=== PATIENT | male | born 1980 | race African-American/Black ===

== ENCOUNTER 2019-09-15 07:58 | Inpatient (IN) | payer OTHER ==
[~2019-09-15] VITALS: Ht 175.3 cm; Wt 113.6 kg
[2019-09-15] MEDS ORDERED: PRINIVIL40 MG PO (08:19)
[2019-09-15] MEDS ORDERED: ACTOS 45MG45 MG/TAB PO (08:21)
[2019-09-15 08:51] LABS: MEAN CELL VOLUME 93 fl (80.0-100.0); MEAN CORPUSCULAR HGB CONC 30 g/dl (33.0-37.0); MEAN PLATELET VOLUME 9.7 fl (7.4-10.4); PLATELET COUNT 598 K/mm3 (130-400); RED BLOOD COUNT 3.09 M/mm3 (4.20-5.60); REDCELL DISTRIBUTION WIDTH-CV 15.8 % (11.5-14.5)
[2019-09-15 09:16] LABS: BILIRUBIN,TOTAL 0.6 mg/dL (0.0-1.0); CALCIUM 8.5 mg/dL (8.4-10.2); CREATININE, serum 0.6 (0.66-1.25); HEMATOCRIT 28.8 % (42.0-52.0); HEMOGLOBIN 8.7 g/dl (13.5-18.0); MEAN CORPUSCULAR HEMOGLOBIN 28 pg (27.0-31.0); POTASSIUM 4.3 mmol/L (3.4-5.0); TOTAL PROTEIN 7.3 gm/dL (6.4-8.2)
[2019-09-15 10:19] LABS: BAND 9 % (0-10); LYMPHOCYTE 12 % (20.0-51.0); METAMYELOCYTE 3 % (0-0); NEUTROPHILS 75 % (42.0-75.2); NUCLEATED RED BLOOD CELL 2 (0-6); PLATELET ESTIMATE DECREASED (NORMAL)
--- NOTE | 2019-09-15 13:40 | NUR ---
arrived on unit per stretcher from ED, with assistance of 5 people moved him with slide board from stretcher to bed, he hs awake and crying out and says he is scared and it hurts and he wants to help move, once into bed he was able to assist with rolling to left side for assessment of cocyx which is intact without redness or open areas, then was also able to help roll to right side to assess dressing to left lower quadrant that is dressed with telfa and is saturated with bloody drainage, has bloody drainage on chux and when was tolled was able to assess left hip incision that appears to have approx open area approx 3cm and remainder of incision with sutures this area has some oozing, has mepiplex dressing to left medial knee, has approx 4cm open wound to left lateral knee that edges are not approximated and open approx 1cm, no drainage noted at this time, left lower extremity with 4+ edema, has 20cm incision with alfredo down front of left lower leg that is CD&I, incision to left shoulder with alfredo CD&I, and lower abdominal pfannestiel incision with sutures that is CD&I, explained to him we would explain everything before doing anything for him and he verbalizes understanding
--- NOTE | 2019-09-15 14:10 | NUR ---
admission assessment completed, he is sleeping when entered room, does awakend after calling his name but continues to doze back off while talking to him, is oriented to date and president and does know he is in [place], goes back to sleep quickly resp quiet and easy
--- NOTE | 2019-09-15 14:42 | NUR ---
BEATRICE Felix notified of vital signs, verbalizes understanding
--- NOTE | 2019-09-15 15:00 | NUR ---
Dr Sandoval in to see patient, dressing removed to left lower quadr and has sutures and is oozing, mepiplex also removed to left knee and it has 2 open areas that has had serosanguinous drainage,
--- NOTE | 2019-09-15 15:22 | NUR ---
spoke with nurse who answered call for Dr Wiley and informed her of consult, BEATRICE Schmitt with orthpaedics also notified of consult
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
--- NOTE | 2019-09-15 15:30 | NUR ---
assisted him with leaning to right side and 4x4 dressings placed with left lower quadrant incision and left hip with foam tape, tolerates well but wants to continue to wait but explained to him why it needs to be done
--- NOTE | 2019-09-15 15:54 | NUR ---
Keshia, PA in to see patient, was unable to get him to wake up and talk with her, called his name loudly and moved him and he did not respond, then moved his leg again and he woke and when spoke to him loudly he thinks I'm being foreceful, tried to explain to him I was unable to arouse him is why I was speaking loudly, he continues to say I am too forceful with how I was talking, Keshia, will visit with him
--- NOTE | 2019-09-15 16:08 | NUR ---
Dr Wiley in to see patient
[2019-09-15 16:16] LABS: INR 1.3 (0.8-3.0); PROTHROMBIN TIME 14.1 SECONDS (9.7-12.8)
--- NOTE | 2019-09-15 16:20 | NUR ---
IV fluids started, he is awake andprovided his name and date or , is quiet and no moaning or grimacing at this itme
--- NOTE | 2019-09-15 16:45 | NUR ---
Vancomycin Initial Dosing Pharmacy Note Ordering provider: Xavi Sandoval MD Indication/duration: Osteomyelitis Empiric Relevant comorbidities: DM LABS: SCr = 0.6, capped at 1 Recommendation: Trough ordered. Will follow levels. Loading dose: 2 grams Maintenance dose: 1.5 grams every 8 hours Trough goal: 15-20 ug/mL
--- NOTE | 2019-09-15 17:00 | NUR ---
awake and assisted him with raising the head of his bed to eat supper, is pleasant and cooperative at this time, is able to feed himself independently, requesting a popsicle when he is finished eating
[2019-09-15 17:30] VITALS: BP 118/70; PULSE 100; TEMP 98
[2019-09-15 18:00] VITALS: BP 115/64; PULSE 115; TEMP 99.7
[2019-09-15 18:32] LABS: PARTIAL THROMBOPLASTIN TIME 41.1 SECONDS (26.0-37.0)
--- NOTE | 2019-09-15 18:36 | NUR ---
attempted to start IV and was unsuccessful, nursing supervisor char house also unsuccessful and have notified another nurse to attempt
[2019-09-15 19:15] VITALS: BP 115/64; PULSE 115; TEMP 99.7
--- NOTE | 2019-09-15 19:16 | NUR ---
bedside shift report given to DAVID Diaz
--- NOTE | 2019-09-15 19:32 | NUR ---
Spoke with Mai from pharmacy. Lara to Y-site heparin into LR.
--- NOTE | 2019-09-15 19:44 | NUR ---
Heparin gtt started at this time. Verified by Sonia HERNANDEZ.
--- NOTE | 2019-09-15 19:54 | NUR ---
Reports 8/10 generalized pain. Provided with PRN morphine.
[2019-09-15 19:55] VITALS: BP 103/70; PULSE 105; TEMP 100
--- NOTE | 2019-09-15 21:45 | NUR ---
Patient turned to replace bed pad and clean dressings to left hip. Distal left hip dressing noted to be dehised about 1in. Clean dressings applied. Left leg edema present. Patient reporting tightness (states not new) in left leg. Patient tachy and febrile with increased pain after moving. Spoke with hospitalist. Orders added.
--- NOTE | 2019-09-15 21:45 | NUR ---
Assessment complete. Patient rolled to change left hip dressing with the assistance of 4 staff members. Lungs clear. Heart sounds normal-tachy. Bowels active. Pulses present. Left lower extremity +3 edema present. Please see skin assessment in shift assessment. Patient has multiple incisions and wounds present with drainage. x1 wound to left hip that has dehisced approx 1in. IV right forearm infusing without complications at this time. Patient has increased pain after assessment. Will contact hospitalist for orders. Call light in reach.
[2019-09-15 23:58] VITALS: BP 134/78; PULSE 99; TEMP 98.6
--- NOTE | 2019-09-16 00:14 | NUR ---
Resting in bed, drowsy. Denies needs. Call light in reach.
--- NOTE | 2019-09-16 00:35 | NUR ---
Patient scheduled for vancomycin 1.5GM. Heparin gtt infusing. Lexicomp states Uncertain y-site compatibility. Contacted e-pharmacy at this time, spoke with Mary Lou. After researching, pharmacist states one article states meds incompatible. RN notified, will pause heaprin gtt and recheck HepXa in 6 hours per [facility].
--- NOTE | 2019-09-16 00:48 | NUR ---
Patient having increased pain. Morphine ordered Q4H. Spoke with hospitalist. Change morphine to Q2H and added norco. Prefer to use norco. Asked hospitalist if okay to give both for short acting and long acting pain control. Will provide to patient.
[2019-09-16 04:00] VITALS: BP 126/86; PULSE 96; TEMP 97.6
--- NOTE | 2019-09-16 05:15 | NUR ---
Patient alert orientated. Reports increased pain in left leg. Assisted with x4 staff members to help patient roll off of left hip and onto right side. Dressing left ABD saturated and change at this time. Patient very tearful. Reports wanting to be able to move and hold daughter again but "stuck in this bed." Dr. Serrano updated on patient situation throughout night. Patient had pain in left lower extremity with minimal movement without assistance. Increased swelling with drainage in left hip/leg. Dr. Serrano in to see patient.
--- NOTE | 2019-09-16 06:33 | NUR ---
Rating 9/10 pain in left lower leg. Provided with PRN morphine
--- NOTE | 2019-09-16 06:44 | NUR ---
Patient had difficult night. Required PRN morphine for pain. Unable to move left leg without assistance from staff. Patient able to move toes. Drainage to left hip and ABD consistant throughout night. PICC orders placed by hospitalist. Recently received dose of morphine this AM. Call light in reach.
--- NOTE | 2019-09-16 07:04 | NUR ---
Report given to DAVID Lamb
[2019-09-16 07:13] VITALS: BP 114/75; PULSE 103; TEMP 99.7
[2019-09-16 07:35] LABS: MEAN CELL VOLUME 94 fl (80.0-100.0); MEAN CORPUSCULAR HGB CONC 30 g/dl (33.0-37.0); MEAN PLATELET VOLUME 9.7 fl (7.4-10.4); PLATELET COUNT 683 K/mm3 (130-400); REDCELL DISTRIBUTION WIDTH-CV 15.9 % (11.5-14.5)
[2019-09-16 07:56] LABS: ALBUMIN 2.8 gm/dL (3.5-5.0); BILIRUBIN,TOTAL 0.4 mg/dL (0.0-1.0); CALCIUM 8.5 mg/dL (8.4-10.2); CREATININE, serum 0.57 (0.66-1.25); POTASSIUM 3.6 mmol/L (3.4-5.0); TOTAL PROTEIN 6.6 gm/dL (6.4-8.2)
[2019-09-16 08:05] LABS: HEMATOCRIT 27.2 % (42.0-52.0); HEMOGLOBIN 8.2 g/dl (13.5-18.0); MEAN CORPUSCULAR HEMOGLOBIN 28 pg (27.0-31.0)
[2019-09-16 08:58] LABS: BAND 7 % (0-10); EOSINOPHIL 3 % (0-4); LYMPHOCYTE 31 % (20.0-51.0); NEUTROPHILS 58 % (42.0-75.2); PLATELET ESTIMATE INCREASED (NORMAL)
--- NOTE | 2019-09-16 09:35 | NUR ---
Patient refused peripheral draw for Hep XA. Hep Xa drawn from PICC.
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
--- NOTE | 2019-09-16 10:55 | NUR ---
Dr Lopes here to see patient.
--- NOTE | 2019-09-16 11:51 | NUR ---
Dr Wiley here to see patient.
--- NOTE | 2019-09-16 11:56 | NUR ---
Patient refuses dressing change to left hip, large amount of drainage on pad.
[2019-09-16 13:00] VITALS: BP 123/76; PULSE 98; TEMP 98.6
--- NOTE | 2019-09-16 13:00 | NUR ---
BASIA attended clinical rounds. The clinical team is recommending that the patient be transferred to a higher level of care. BASIA contacted Be[facility], [facility] with [facility], to inquire if they could accomodate the patient. BASIA faxed clinicals to Becca. Becca reports that they would not be able to provide the level of care the patient needs. BASIA notified the hospitalist. BASIA to continue to follow.
--- NOTE | 2019-09-16 13:28 | NUR ---
Dr Lopes here to see patient.
[2019-09-16 19:37] VITALS: BP 118/72; PULSE 106; TEMP 99.3
--- NOTE | 2019-09-16 19:53 | NUR ---
Patient has yelled out consistently throughout the day with c/o pain, frequent repositioning; yet refuses to allow staff to reposition him. Patient has refused linen and dressing changes, although linens have been saturated with drainage. Attempted to change bedding under patient with staff x4, pain medications and use of draw sheet, after attempting times x1 hour with several "breaks" for patient, effort was abandoned to try again later. Attempted approx one hour later with assist x6 to change linens, with patient loudly and verbally refusing. Several attempts to redirect patient and to perform cares throughout the day met with resistance. Patient also adamant that he be transferred to a hospital in [place], does not have a specific hospital in mind, just in [place]. Patient informed of rules and regulations for tranfer, and remains adamant to be transferred to a facility in [place]. Dr Lopes aware of this and has consulted [facility] for transfer. Possible transfer to [facility] in a.m.
[2019-09-17 00:30] VITALS: BP 140/78; PULSE 100; TEMP 97.1
--- NOTE | 2019-09-17 01:13 | NUR ---
PATIENT HAS REFUSED TO BE REPOSITIONED EVERY TIME IN THE ROOM
--- NOTE | 2019-09-17 03:13 | NUR ---
PRN PAIN MEDICATIONS WERE GIVEN TO PATIENT. STAFF MEMBERS X5 WERE IN ROOM TO HELP GET SHEETS AND DISPOLSABLE PADS UNDERNEATH OF THE PATIENT CHANGED. DRESSINGS WERE CHANGED. THE SHEETS, PADS, AND DRESSINGS WERE CHANGED BECAUSE THEY WERE SATURATED WITH BLOOD. PATIENT WAS MOANING AND GROINING IN PAIN. PATIENT ASKED TO LET HIM BE IN CHARGE. ONE NURSE HAD THE PATIENT LEG AND LIFTING IT OFF OF THE BED AND THE PATIENT WAS ABLE TO LIFT HIMSELF OFF OF THE BED AND STAFF MEMEBERS WERE ABLE TO SLIDE THE NEW SHEETS AND PADS UNDER HIM. ANOTHER DOSE OF PAIN MEDICATION WAS GIVEN. THE WOUNDS WERE ALL SATURATED IN BLOOD AND DRAINAGE. EXTRA PRN PAIN MEDICATION WAS GIVEN TO THE PATIENT. PATIENT IS RESTING NOW. WILL CONTINUE TO MONITOR
[2019-09-17 03:34] VITALS: BP 114/72; PULSE 99; TEMP 97.9
--- NOTE | 2019-09-17 05:03 | NUR ---
PATIENT CALLED OUT FOR PAIN MEDICATION. NOT IN THE ROOM YET THE PATIENT IS QUIET AND NOT BREATHING HEAVY OR MAKING ANY NOISES. UPON ENTERING THE ROOM THE PATIENT STARTS BREATHING HEAVY AND ACTING LIKE HE IS IN SEVERE PAIN. PRN PAIN MEDICATION WAS GIVEN TO THE PATIENT. PATIENT HAD TAKEN OFF HIS TELEMETEY MONITOR AND WHEN ASKED WHY HE TOOK IT OFF, HE DIDNT SAY MUCH BESIDES HE DIDNT. PATIENT WAS ABLE TO USE THE URINAL BEFORE AND THIS TIME WANTED SOMEONE TO HOLD THE URINAL. PATIENT COMPLANING OF HIS LEG TIGHTENING UP. PULSE WAS DOPPLED AT THE DORSALIS PEDIS AND FOUND.
--- NOTE | 2019-09-17 06:17 | NUR ---
PATIENT HAS MOANED AND GRONNED DURING THE NIGHT. ROXICODONE WAS ADDED TO THE PAIN REGIMEN WHICH HAS SEEMED TO HELP WITH THE PAIN THE MOST. NEW SHEETS AND PADS WERE APPLIED TO THE PATIENT. OTHER NOTES PREVIOUSLY DESCRIBE THE NIGHT WITH THE PATIENT. INCISIONS ARE STILL SEEPING AND OOZING. PATIENT COMPLAINS OF HIS LEG HURTING AND THE SKIN GETTING TIGHT. PATIENT IS ABLE TO MOVE TOES AND FEELS YOU TOUCHING THE FOOT. WILL CONTINUE TO MONITOR. WILL REPORT OFF TO DAY SHIFT.
[2019-09-17 06:51] LABS: MEAN CELL VOLUME 93 fl (80.0-100.0); MEAN CORPUSCULAR HGB CONC 30 g/dl (33.0-37.0); MEAN PLATELET VOLUME 9.9 fl (7.4-10.4); PLATELET COUNT 666 K/mm3 (130-400); RED BLOOD COUNT 2.99 M/mm3 (4.20-5.60); REDCELL DISTRIBUTION WIDTH-CV 15.9 % (11.5-14.5)
[2019-09-17 06:53] LABS: HEMATOCRIT 27.8 % (42.0-52.0); HEMOGLOBIN 8.3 g/dl (13.5-18.0); MEAN CORPUSCULAR HEMOGLOBIN 28 pg (27.0-31.0)
--- NOTE | 2019-09-17 07:52 | NUR ---
Patient yells out that "I need pain medicine, this hurts to bad." Pain medications given. Several times through a ten minute assessment patient dozes off, awakens to eat a few bites of breakfast, then sleeps again.
[2019-09-17 08:44] VITALS: BP 120/82; PULSE 100; TEMP 97.2
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
--- NOTE | 2019-09-17 10:22 | NUR ---
Dr Lopes here to see patient.
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
[2019-09-17 11:48] VITALS: BP 100/40; PULSE 98; TEMP 97.9
[2019-09-17 12:00] VITALS: BP 100/40; PULSE 98; TEMP 97.9
[2019-09-17 13:03] VITALS: BP 100/40; PULSE 98; TEMP 97.9
--- NOTE | 2019-09-17 13:09 | NUR ---
Wound assessment note. Left humerus fx ORIF; incision well approximated, alfredo intact, no redness or drainage noted. Left tranverse acetabular fx ORIF; lateral incision with alfredo intact, approx one inch open area. Redness noted at site, large amounts of serosanguinous drainage noted. Left felipe compartment syndrome incision with edges well approximated, alfredo intact, no redness or drainage noted. Left lateral knee ulcer with scant amount purulent drainage noted. Left medial knee ulcer with scant amount purulent drainage noted. Pfannestiel incision with edges well approximated except approx two inch area to left side dehisced and draining moderate amount of serosanguinous drainage. LLE with 2-3+ weeping edema noted. 2-3+ edema noted to scrotom.
--- NOTE | 2019-09-17 14:33 | NUR ---
Patient transferred to [facility] in [place] via cart/EMS, transferred x4 assist with slide board. Tranferred with heparing gtt infusing into right PICC, reviewed with EMS. Report called to Mai. Transferred at 1405.
== END 2019-09-17 14:05 | disposition short-term general hospital (02) | DRG 872 ==
LOC: COL.ER 07:58 → SURG 11:54
PROVIDERS: Emergency Medicine; Physician Assistant; ADMIT Student in an Organized Health Care Education/Training Program
PROC: 02HV33Z Insertion of Infusion Device into Superior Vena Cava, Percutaneous Approach (ICD-10-PCS; principal; 2019-09-16)
DX: A41.59 Other Gram-negative sepsis (principal); I82.412 Acute embolism and thrombosis of left femoral vein; L03.116 Cellulitis of left lower limb; E11.9 Type 2 diabetes mellitus without complications; F17.210 Nicotine dependence, cigarettes, uncomplicated; D64.9 Anemia, unspecified; D69.6 Thrombocytopenia, unspecified; R16.2 Hepatomegaly with splenomegaly, not elsewhere classified; I10 Essential (primary) hypertension; Z79.84 Long term (current) use of oral hypoglycemic drugs
CPT/HCPCS: 99223-AI; 99232-AI; 99239; C1751; J0692; J1644; J1815; J2270; J3370; J7040; J7050; J7120